=== PATIENT | female | born 1980 | race American Indian/Alaskan Native ===

== ENCOUNTER 2016-09-25 05:22 | Emergency (ER) | payer SELFPAY ==
--- NOTE | 2016-09-28 07:27 | ED Elopement Review ---
ED Pt Elopement review - Call Back decision Pt Call Back Decision: No action required
== END 2016-09-25 05:35 | disposition left against medical advice (07) ==
LOC: ED 05:22
DX: R00.2 Palpitations (principal); Z53.21 Procedure and treatment not carried out due to patient leaving prior to being seen by health care provider
CPT/HCPCS: 93005; 93010

== ENCOUNTER 2017-02-09 00:23 | Emergency (ER) | payer MEDICAID ==
[2017-02-09 00:59] LABS: Basophils % (Auto) 0.3 % (0.0-1.8); Eosinophils % (Auto) 0.1 % (0.0-4.3); Hematocrit 40.9 % (30.3-42.9); Hemoglobin 13.8 gm/dl (10.1-14.3); Mean Corpuscular HGB Conc 34 % (30-34); Mean Corpuscular Hemoglobin 30 pg (28-32); Mean Corpuscular Volume 88 fl (79-97); Platelet Count 404 K/mm3 (140-440); Red Blood Count 4.66 M/mm3 (3.65-5.03); Red Cell Distribution Width 14.2 % (13.2-15.2); White Blood Count 7.2 K/mm3 (4.5-11.0)
[2017-02-09 01:18] LABS: Alanine Aminotransferase 22 units/L (7-56); Albumin 3.9 g/dL (3.9-5); Albumin/Globulin Ratio 1.3 %; Alkaline Phosphatase 64 units/L (35-129); Anion Gap 16 mmol/L; BUN/Creatinine Ratio 4; Blood Urea Nitrogen 3 mg/dL (7-17); Calcium 8.8 mg/dL (8.4-10.2); Carbon Dioxide 25 mmol/L (22-30); Chloride 100.6 mmol/L (98-107); Glucose 96 mg/dL (65-100); Lipase 25 units/L (13-60); Potassium 3.5 mmol/L (3.6-5.0); Sodium 138 mmol/L (137-145)
[2017-02-09 03:40] LABS: Bacteria,Urine 1+ /HPF (Negative); Bilirubin,Urine MOD (Negative); Blood,Urine NEG (Negative); Ketones,Urine TR mg/dL (Negative); Leukocyte Esterase,Urine NEG (Negative); Mucus,Urine 3+ /HPF; Nitrite,Urine NEG (Negative); Urobilinogen,Urine < 2.0 mg/dL (<2.0)
[2017-02-09] MEDS ORDERED: NACL 0.9% 1000 ML 1,000 ML IV ONE (08:38)
[2017-02-09] MEDS ORDERED: TORADOL IV ONE (08:39)
[2017-02-09] MEDS ORDERED: TYLENOL PO ONE (08:39)
--- NOTE | 2017-02-09 08:39 | Emergency Department Report ---
ED Abdominal Pain HPI - General Chief Complaint: Abdominal Pain Stated Complaint: ABD PAIN/ DIARRHEA Time Seen by Provider: 02/09/17 08:31 Source: patient, RN notes reviewed Mode of arrival: Ambulatory Limitations: No Limitations - History of Present Illness Initial Comments: This is a 36-year-old female who is previously unknown to this provider. Her primary care doctor is in [facility], although she cannot remember the name. She recently got back from [place] 1 weeks ago and comes to the ER today complaining of numerous episodes of watery greenish brown diarrhea, diffuse abdominal cramping and body aches. This has been going on for 1 week. It is constant. It has no exacerbating or relieving factors. Does not travel anywhere. Patient denies headache, neck pain, chest pain, urinary symptoms, she denies nausea, vomiting and diarrhea. She reports no improvement with over- the-counter symptoms. MD Complaint: abdominal pain -: Gradual, days(s) Location: diffuse Quality: cramping Consistency: constant Improves With: rest Worsens With: movement Context: foreign travel, possible food poisoning Associated Symptoms: diarrhea. denies: nausea, vomiting, fever, dysuria, hematemesis, hematochezia, melena, hematuria, anorexia, syncope Treatments Prior to Arrival: NSAIDs, other (immodium) - Related Data Previous Rx's Medication Instructions Recorded Last Taken Type Acetaminophen [Tylenol Arthritis] 650 mg PO Q6HR PRN #30 tablet.er 02/09/17 Unknown Rx Ciprofloxacin HCl [Cipro] 500 mg PO BID #5 tablet 02/09/17 Unknown Rx Ibuprofen [Motrin] 600 mg PO Q8H PRN #30 tablet 02/09/17 Unknown Rx Metoclopramide [Reglan] 10 mg PO QID PRN #30 tablet 02/09/17 Unknown Rx Allergies Allergy/AdvReac Type Severity Reaction Status Date / Time No Known Allergies Allergy Verified 09/25/16 05:47 ED Review of Systems ROS: Stated complaint: ABD PAIN/ DIARRHEA Other details as noted in HPI Constitutional: malaise, weakness Eyes: denies: vision change ENT: denies: epistaxis Respiratory: denies: cough Cardiovascular: denies: chest pain Gastrointestinal: abdominal pain, diarrhea Genitourinary: denies: dysuria Musculoskeletal: arthralgia, myalgia Neurological: weakness ED Past Medical Hx - Past Medical History Previous Medical History?: No - Surgical History Past Surgical History?: No - Social History Smoking Status: Never Smoker Substance Use Type: None - Medications Home Medications: Home Medications Medication Instructions Recorded Confirmed Last Taken Type Acetaminophen [Tylenol Arthritis] 650 mg PO Q6HR PRN #30 tablet.er 02/09/17 Unknown Rx Ciprofloxacin HCl [Cipro] 500 mg PO BID #5 tablet 02/09/17 Unknown Rx Ibuprofen [Motrin] 600 mg PO Q8H PRN #30 tablet 02/09/17 Unknown Rx Metoclopramide [Reglan] 10 mg PO QID PRN #30 tablet 02/09/17 Unknown Rx ED Physical Exam - General Limitations: No Limitations General appearance: alert, in no apparent distress - Head Head exam: Present: atraumatic, normocephalic - Eye Eye exam: Present: normal appearance, EOMI. Absent: nystagmus - ENT ENT exam: Present: normal exam, normal orophraynx, mucous membranes moist, normal external ear exam - Neck Neck exam: Present: normal inspection, full ROM - Respiratory Respiratory exam: Present: normal lung sounds bilaterally. Absent: respiratory distress - Cardiovascular Cardiovascular Exam: Present: regular rate, normal rhythm, normal heart sounds. Absent: systolic murmur, diastolic murmur, rubs, gallop - GI/Abdominal GI/Abdominal exam: Present: soft, tenderness, normal bowel sounds, other (mild diffuse abdominal tenderness, most prominent in the left lower quadrant). Absent: distended, guarding, rebound, rigid, pulsatile mass - Extremities Exam Extremities exam: Present: normal inspection, full ROM, normal capillary refill. Absent: pedal edema, joint swelling, calf tenderness - Back Exam Back exam: Present: normal inspection, full ROM. Absent: paraspinal tenderness , vertebral tenderness - Neurological Exam Neurological exam: Present: alert, oriented X3, CN II-XII intact, normal gait, other (Extraocular movements intact. Tongue midline. No facial droop. Facial sensation intact to light touch in the V1, V2, V3 distribution bilaterally. 5 and 5 strength in 4 extremities.. Sensation is intact to light touch in 4 extremities.). Absent: motor sensory deficit - Psychiatric Psychiatric exam: Present: normal affect, normal mood - Skin Skin exam: Present: warm, dry, intact, normal color. Absent: rash ED Course Vital Signs 02/09/17 02/09/17 02/09/17 00:28 04:50 06:00 Temperature 98.3 F 98 F Pulse Rate 103 H 86 Respiratory 18 16 Rate Blood Pressure 114/67 101/70 Blood Pressure 117/80 [Right] O2 Sat by Pulse 95 99 98 Oximetry 02/09/17 02/09/17 02/09/17 06:30 07:00 07:30 Temperature Pulse Rate Respiratory Rate Blood Pressure 107/67 117/79 104/64 Blood Pressure [Right] O2 Sat by Pulse 98 99 Oximetry 02/09/17 02/09/17 02/09/17 08:00 08:30 08:40 Temperature Pulse Rate Respiratory 18 Rate Blood Pressure 127/79 110/61 Blood Pressure [Right] O2 Sat by Pulse 98 99 Oximetry 02/09/17 02/09/17 02/09/17 08:45 09:00 09:30 Temperature Pulse Rate Respiratory 18 Rate Blood Pressure 113/72 115/82 Blood Pressure [Right] O2 Sat by Pulse 99 Oximetry ED Medical Decision Making - Lab Data Result diagrams: 02/09/17 00:39 02/09/17 00:39 Vital Signs 02/09/17 02/09/17 02/09/17 00:28 04:50 06:00 Temperature 98.3 F 98 F Pulse Rate 103 H 86 Respiratory 18 16 Rate Blood Pressure 114/67 101/70 Blood Pressure 117/80 [Right] O2 Sat by Pulse 95 99 98 Oximetry 02/09/17 02/09/17 02/09/17 06:30 07:00 07:30 Temperature Pulse Rate Respiratory Rate Blood Pressure 107/67 117/79 104/64 Blood Pressure [Right] O2 Sat by Pulse 98 99 Oximetry 02/09/17 02/09/17 02/09/17 08:00 08:30 08:40 Temperature Pulse Rate Respiratory 18 Rate Blood Pressure 127/79 110/61 Blood Pressure [Right] O2 Sat by Pulse 98 99 Oximetry 02/09/17 02/09/17 08:45 09:00 Temperature Pulse Rate Respiratory 18 Rate Blood Pressure 113/72 Blood Pressure [Right] O2 Sat by Pulse Oximetry Lab Results 02/09/17 02/09/17 02/09/17 Range/Units 00:39 00:39 00:39 WBC 7.2 (4.5-11.0) K/mm3 RBC 4.66 (3.65-5.03) M/mm3 Hgb 13.8 (10.1-14.3) gm/dl Hct 40.9 (30.3-42.9) % MCV 88 (79-97) fl MCH 30 (28-32) pg MCHC 34 (30-34) % RDW 14.2 (13.2-15.2) % Plt Count 404 (140-440) K/mm3 Lymph % (Auto) 21.6 (13.4-35.0) % Lamb % (Auto) 11.8 H (0.0-7.3) % Eos % (Auto) 0.1 (0.0-4.3) % Baso % (Auto) 0.3 (0.0-1.8) % Lymph # 1.6 (1.2-5.4) K/mm3 Lamb # 0.8 (0.0-0.8) K/mm3 Eos # 0.0 (0.0-0.4) K/mm3 Baso # 0.0 (0.0-0.1) K/mm3 Seg Neutrophils % 66.2 (40.0-70.0) % Seg Neutrophils # 4.8 (1.8-7.7) K/mm3 Sodium 138 (137-145) mmol/L Potassium 3.5 L (3.6-5.0) mmol/L Chloride 100.6 (98-107) mmol/L Carbon Dioxide 25 (22-30) mmol/L Anion Gap 16 mmol/L BUN 3 L (7-17) mg/dL Creatinine 0.8 (0.7-1.2) mg/dL Estimated GFR > 60 ml/min BUN/Creatinine Ratio 4 % Glucose 96 (65-100) mg/dL Calcium 8.8 (8.4-10.2) mg/dL Total Bilirubin 0.50 (0.1-1.2) mg/dL AST 20 (5-40) units/L ALT 22 (7-56) units/L Alkaline Phosphatase 64 (35-129) units/L Total Protein 7.0 (6.3-8.2) g/dL Albumin 3.9 (3.9-5) g/dL Albumin/Globulin Ratio 1.3 % Lipase 25 (13-60) units/L HCG, Qual Negative (Negative) Urine Color (Yellow) Urine Turbidity (Clear) Urine pH (5.0-7.0) Ur Specific [place] (1.003-1.030) Urine Protein (Negative) mg/dL Urine Glucose (UA) (Negative) mg/dL Urine Ketones (Negative) mg/dL Urine Blood (Negative) Urine Nitrite (Negative) Urine Bilirubin (Negative) Urine Ictotest (Negative) Urine Urobilinogen (<2.0) mg/dL Ur Leukocyte Esterase (Negative) Urine WBC (Auto) (0.0-6.0) /HPF Urine RBC (Auto) (0.0-6.0) /HPF U Epithel Cells (Auto) (0-13.0) /HPF Urine Bacteria (Auto) (Negative) /HPF Urine Mucus /HPF 02/09/17 Range/Units Unknown WBC (4.5-11.0) K/mm3 RBC (3.65-5.03) M/mm3 Hgb (10.1-14.3) gm/dl Hct (30.3-42.9) % MCV (79-97) fl MCH (28-32) pg MCHC (30-34) % RDW (13.2-15.2) % Plt Count (140-440) K/mm3 Lymph % (Auto) (13.4-35.0) % Lamb % (Auto) (0.0-7.3) % Eos % (Auto) (0.0-4.3) % Baso % (Auto) (0.0-1.8) % Lymph # (1.2-5.4) K/mm3 Lamb # (0.0-0.8) K/mm3 Eos # (0.0-0.4) K/mm3 Baso # (0.0-0.1) K/mm3 Seg Neutrophils % (40.0-70.0) % Seg Neutrophils # (1.8-7.7) K/mm3 Sodium (137-145) mmol/L Potassium (3.6-5.0) mmol/L Chloride (98-107) mmol/L Carbon Dioxide (22-30) mmol/L Anion Gap mmol/L BUN (7-17) mg/dL Creatinine (0.7-1.2) mg/dL Estimated GFR ml/min BUN/Creatinine Ratio % Glucose (65-100) mg/dL Calcium (8.4-10.2) mg/dL Total Bilirubin (0.1-1.2) mg/dL AST (5-40) units/L ALT (7-56) units/L Alkaline Phosphatase (35-129) units/L Total Protein (6.3-8.2) g/dL Albumin (3.9-5) g/dL Albumin/Globulin Ratio % Lipase (13-60) units/L HCG, Qual (Negative) Urine Color Jante (Yellow) Urine Turbidity Clear (Clear) Urine pH 5.0 (5.0-7.0) Ur Specific [place] 1.051 H (1.003-1.030) Urine Protein 100 mg/dl (Negative) mg/dL Urine Glucose (UA) Neg (Negative) mg/dL Urine Ketones Tr (Negative) mg/dL Urine Blood Neg (Negative) Urine Nitrite Neg (Negative) Urine Bilirubin Mod (Negative) Urine Ictotest Negative (Negative) Urine Urobilinogen < 2.0 (<2.0) mg/dL Ur Leukocyte Esterase Neg (Negative) Urine WBC (Auto) 6.0 (0.0-6.0) /HPF Urine RBC (Auto) 11.0 (0.0-6.0) /HPF U Epithel Cells (Auto) 16.0 H (0-13.0) /HPF Urine Bacteria (Auto) 1+ (Negative) /HPF Urine Mucus 3+ /HPF - Medical Decision Making Differential diagnosis, including but not limited to: Enteritis, colitis, traveler's diarrhea Assessment and plan: 36-year-old female who got back from [place] approximately one week ago with numerous episodes of diarrhea, without nausea or vomiting. She is afebrile with reassuring vital signs, she is tolerating liquid feeds, and she is medicated with IV fluids, pain medication, and empiric antibiotic therapy. Patient observed in the ER for a few hours of clinical decompensation , her belly was soft on repeat examination, and she'll be discharged at this time with instructions to follow up with outpatient primary care. Return precautions are reviewed. Critical care attestation.: If time is entered above; I have spent that time in minutes in the direct care of this critically ill patient, excluding procedure time. ED Disposition Clinical Impression: Diarrhea Disposition: DC-01 TO HOME OR SELFCARE Is pt being admited?: No Does the pt Need Aspirin: No Condition: Stable Instructions: Traveler's Diarrhea (ED), Acute Diarrhea (ED) Additional Instructions: Take the medications as directed. Do not consume alcohol for the next 10-14 days. Follow-up with the primary care doctor or postal clerk within the next [address] Adalberto Malik is a local primary care doctor. Dr. Jones is a local postal clerk. Return to the ER right away with new pain, worsening pain, migration of pain, fevers, chills, lethargy, irritability, projectile vomiting, confusion, change in mental status, inability to tolerate liquid feeds. Prescriptions: Acetaminophen [Tylenol Arthritis] 650 mg PO Q6HR PRN #30 tablet.er PRN Reason: Pain Ciprofloxacin HCl [Cipro] 500 mg PO BID #5 tablet Ibuprofen [Motrin] 600 mg PO Q8H PRN #30 tablet PRN Reason: Pain Metoclopramide [Reglan] 10 mg PO QID PRN #30 tablet PRN Reason: Nausea Referrals: PRIMARY CAREMD [Primary Care Provider] - 3-5 Days MANI ARREGUIN MD [Staff Physician] - 3-5 Days SHAYY JONES MD [Staff Physician] - 3-5 Days Forms: Work/School Release Form(ED)
[2017-02-09] MEDS ORDERED: LEVAQUIN PO ONE (08:41)
[2017-02-09 09:58] VITALS: BP 115/82
== END 2017-02-09 10:01 | disposition home or self-care (01) ==
LOC: ED 00:23
DX: R19.7 Diarrhea, unspecified (principal); R10.84 Generalized abdominal pain; M79.1 Myalgia
CPT/HCPCS: 36415; 80048; 80053; 81001; 83690; 84703; 85025; 96361; 96374; 99284; J1885; J7030